=== PATIENT | female | born 1990 | race African-American/Black ===

== ENCOUNTER 2022-11-19 04:43 | Emergency (ER) | payer SELFPAY ==
[~2022-11-19] VITALS: Ht 188 cm; Wt 72.2 kg
[2022-11-19 04:47] VITALS: BP 127/84; PULSE 89; RESP 16; TEMP 98.6; O2SAT 100
[2022-11-19] MEDS ORDERED: LIDOCAINE HCL/EPINEPHRINE 1%-EPI 1:100,000 20 ML VIAL INFIL ONE (05:30)
[2022-11-19] MEDS ORDERED: BACITRACIN ZINC OINT UDPKT TOP ONE (05:30)
[2022-11-19] MEDS ORDERED: TETANUS, DIPHTHERIA, PERTUSSIS VAC/PF 0.5ML (>10YR OLD) IM ONE (05:30)
[2022-11-19] MEDS ORDERED: IBUPROFEN 600MG TABLET PO ONE (05:30)
== END 2022-11-19 06:25 | disposition left against medical advice (07) ==
LOC: ER 05:04
DX: S41.012A Laceration without foreign body of left shoulder, initial encounter (principal); W26.9XXA Contact with unspecified sharp object(s), initial encounter; Y93.89 Activity, other specified; Y92.89 Other specified places as the place of occurrence of the external cause; Y99.8 Other external cause status
CPT/HCPCS: 99281; J3490